=== PATIENT | female | born 1990 | race Asian ===

== ENCOUNTER → 2022-05-05 | Emergency (ER) | payer OTHER, BC ==
[~2022-05-05] MED LIST: CEFAZOLIN 2 GM VIAL ONE; Rabies Vaccine Human 2.5 UNITS VIAL ONE
== END ==
LOC: CSHERS 14:56 → EDSTATUS 17:45 → CSHERS 17:46 → EDSTATUS 17:47
DX: S61.255A Open bite of left ring finger without damage to nail, initial encounter (principal); W54.0XXA Bitten by dog, initial encounter
CPT/HCPCS: 90675; 99283